=== PATIENT | male | born 1955 | race Caucasian/White ===

== ENCOUNTER 2019-05-21 06:46 | Emergency (ER) | payer MEDICARE, OTHER ==
[2019-05-21 06:54] VITALS: RESP 18; TEMP 98.1
[2019-05-21] MEDS ORDERED: DICYCLOMINE 10 MG/ML 2 ML AMP IM STA (08:01)
--- NOTE | 2019-05-21 08:12 | ED ---
General Adult HPI - General Chief complaint: GI Bleed Stated complaint: Abd Pain Time Seen by Provider: 05/21/19 07:00 Source: patient, RN notes reviewed Mode of arrival: ambulatory Limitations: no limitations - History of Present Illness Initial comments: This is a 64-year-old male who presents to the emergency department complaining that at midnight last night he was somewhat constipated but has not progressed is stool became looser and lucid to the point where he was having just watery diarrhea. Patient states at this point he has had multiple episodes of diarrhea with blood clots in them. Patient states he does have a family history of recta l cancer. Patient states his last colonoscopy was 5 years ago. Patient denies any blood thinners. Patient states she has lower abdominal cramping but no specific area of pain. Patient denies any fever chills per patient denies any recent antibiotics use. Patient denies any nausea vomiting. Patient denies chest pain difficulty breathing shortness of breath. - Related Data Home Medications Medication Instructions Recorded Confirmed Lisinopril [Zestril] 10 mg PO DAILY 05/21/19 05/21/19 Previous Rx's Medication Instructions Recorded Dicyclomine [Bentyl] 20 mg PO QID #10 tablet 05/21/19 Allergies Allergy/AdvReac Type Severity Reaction Status Date / Time No Known Allergies Allergy Verified 05/21/19 07:23 Review of Systems ROS Statement: Those systems with pertinent positive or pertinent negative responses have been documented in the HPI. ROS Other: All systems not noted in ROS Statement are negative. Past Medical History Past Medical History: No Reported History History of Any Multi-Drug Resistant Organisms: None Reported Past Surgical History: No Surgical Hx Reported Past Psychological History: No Psychological Hx Reported Smoking Status: Current every day smoker Past Alcohol Use History: None Reported Past Drug Use History: None Reported General Exam - General Exam Comments Initial Comments: GENERAL: Patient is well-developed and well-nourished. Patient is nontoxic and well- hydrated and is in mild distress. ENT: Neck is soft and supple. No significant lymphadenopathy is noted. Oropharynx is clear. Moist mucous membranes. Neck has full range of motion without eliciting any pain. EYES: The sclera were anicteric and conjunctiva were pink and moist. Extraocular movements were intact and pupils were equal round and reactive to light. Eyelids were unremarkable. PULMONARY: Unlabored respirations. Good breath sounds bilaterally. No audible rales rhonchi or wheezing was noted. CARDIOVASCULAR: There is a regular rate and rhythm without any murmurs gallops or rubs. ABDOMEN: Soft and nontender with normal bowel sounds. No palpable organomegaly was noted. There is no palpable pulsatile mass. RECTAL: No site of obvious bleeding was seen rectal inspection SKIN: Skin is clear with no lesions or rashes and otherwise unremarkable. NEUROLOGIC: Patient is alert and oriented x3. Cranial nerves II through XII are grossly intact. Motor and sensory are also intact. Normal speech, volume and content. Symmetrical smile. MUSCULOSKELETAL: Normal extremities with adequate strength and full range of motion. LYMPHATICS: No significant lymphadenopathy is noted PSYCHIATRIC: Normal psychiatric evaluation. Limitations: no limitations Course Vital Signs 05/21/19 06:50 Temperature 98.1 F Pulse Rate 88 Respiratory 18 Rate Blood Pressure 156/89 O2 Sat by Pulse 96 Oximetry Medical Decision Making - Medical Decision Making Patient felt the Bentyl helped the cramping. Patient was offered admission he did not want state rather follow-up as an outpatient. - Lab Data Result diagrams: 05/21/19 07:00 05/21/19 07:00 Lab Results 05/21/19 05/21/19 05/21/19 Range/Units 07:00 07:00 07:00 WBC 17.5 H (3.8-10.6) k/uL RBC 5.28 (4.30-5.90) m/uL Hgb 14.7 (13.0-17.5) gm/dL Hct 46.5 (39.0-53.0) % MCV 88.0 (80.0-100.0) fL MCH 27.9 (25.0-35.0) pg MCHC 31.7 (31.0-37.0) g/dL RDW 15.4 (11.5-15.5) % Plt Count 203 (150-450) k/uL Neutrophils % 90 % Lymphocytes % 7 % Monocytes % 3 % Eosinophils % 0 % Basophils % 0 % Neutrophils # 15.7 H (1.3-7.7) k/uL Lymphocytes # 1.2 (1.0-4.8) k/uL Monocytes # 0.5 (0-1.0) k/uL Eosinophils # 0.0 (0-0.7) k/uL Basophils # 0.0 (0-0.2) k/uL PT (9.0-12.0) sec INR (<1.2) APTT (22.0-30.0) sec Sodium 140 (137-145) mmol/L Potassium 4.5 (3.5-5.1) mmol/L Chloride 105 (98-107) mmol/L Carbon Dioxide 20 L (22-30) mmol/L Anion Gap 15 mmol/L BUN 22 H (9-20) mg/dL Creatinine 0.83 (0.66-1.25) mg/dL Est GFR (CKD-EPI)AfAm >90 (>60 ml/min/1.73 sqM) Est GFR (CKD-EPI)NonAf >90 (>60 ml/min/1.73 sqM) Glucose 151 H (74-99) mg/dL Calcium 10.7 H (8.4-10.2) mg/dL Magnesium 1.8 (1.6-2.3) mg/dL Total Bilirubin 0.5 (0.2-1.3) mg/dL AST 26 (17-59) U/L ALT 41 (21-72) U/L Alkaline Phosphatase 61 (38-126) U/L Total Protein 8.0 (6.3-8.2) g/dL Albumin 4.9 (3.5-5.0) g/dL Blood Type B Positive Blood Type Confirm Blood Type Recheck CABO Indicated Antibody Screen NEGATIVE Spec Expiration Date 05/24/2019 - 229905/21/19 05/21/19 Range/Units 07:00 08:20 WBC (3.8-10.6) k/uL RBC (4.30-5.90) m/uL Hgb (13.0-17.5) gm/dL Hct (39.0-53.0) % MCV (80.0-100.0) fL MCH (25.0-35.0) pg MCHC (31.0-37.0) g/dL RDW (11.5-15.5) % Plt Count (150-450) k/uL Neutrophils % % Lymphocytes % % Monocytes % % Eosinophils % % Basophils % % Neutrophils # (1.3-7.7) k/uL Lymphocytes # (1.0-4.8) k/uL Monocytes # (0-1.0) k/uL Eosinophils # (0-0.7) k/uL Basophils # (0-0.2) k/uL PT 10.7 (9.0-12.0) sec INR 1.0 (<1.2) APTT 24.1 (22.0-30.0) sec Sodium (137-145) mmol/L Potassium (3.5-5.1) mmol/L Chloride (98-107) mmol/L Carbon Dioxide (22-30) mmol/L Anion Gap mmol/L BUN (9-20) mg/dL Creatinine (0.66-1.25) mg/dL Est GFR (CKD-EPI)AfAm (>60 ml/min/1.73 sqM) Est GFR (CKD-EPI)NonAf (>60 ml/min/1.73 sqM) Glucose (74-99) mg/dL Calcium (8.4-10.2) mg/dL Magnesium (1.6-2.3) mg/dL Total Bilirubin (0.2-1.3) mg/dL AST (17-59) U/L ALT (21-72) U/L Alkaline Phosphatase (38-126) U/L Total Protein (6.3-8.2) g/dL Albumin (3.5-5.0) g/dL Blood Type Blood Type Confirm B Positive Blood Type Recheck Antibody Screen Spec Expiration Date Disposition Clinical Impression: Diarrhea, Rectal bleeding Disposition: HOME SELF-CARE Condition: Good Instructions (If sedation given, give patient instructions): Gastrointestinal Bleeding (ED) Additional Instructions: Patient should follow-up with primary medical care doctor for colonoscopy. Patient should return to emergency department if bleeding becomes heavier or if there are new symptoms. Prescriptions: Dicyclomine [Bentyl] 20 mg PO QID #10 tablet Is patient prescribed a controlled substance at d/c from ED?: No Referrals: Álvaro Jones MD [Primary Care Provider] - 1-2 days Time of Disposition: 09:42
--- NOTE | 2019-05-21 08:15 | XR ---
EXAMINATION TYPE: XR KUB DATE OF EXAM: 05/21/2019 COMPARISON: NONE HISTORY: Pain TECHNIQUE: Single supine KUB image of the abdomen is obtained FINDINGS: Small bowel demonstrates no evidence for dilatation or air fluid levels. Gas and fecal material is seen in non-distended colon. No convincing evidence for pneumoperitoneum. No unusual calcifications. The lung bases are clear. The osseous structures are intact. IMPRESSION: 1. Overall nonobstructive bowel gas pattern.
[2019-05-21 08:28] LABS: Partial Thromboplastin Time 24.1 sec (22.0-30.0); Prothrombin Time 10.7 sec (9.0-12.0)
[2019-05-21 08:30] LABS: ALT 41 U/L (21-72); AST 26 U/L (17-59); African American GFR (CKD) >90 (>60 ml/min/1.73 sqM); Albumin 4.9 g/dL (3.5-5.0); Alkaline Phosphatase 61 U/L (38-126); Anion Gap 15 mmol/L; Basophils % (A) 0 %; Blood Urea Nitrogen 22 mg/dL (9-20); Calcium 10.7 mg/dL (8.4-10.2); Carbon Dioxide 20 mmol/L (22-30); Chloride 105 mmol/L (98-107); Eosinophils % (A) 0 %; Glucose 151 mg/dL (74-99); HCT 46.5 % (39.0-53.0); HGB 14.7 gm/dL (13.0-17.5); Lymphocytes # (A) 1.2 k/uL (1.0-4.8); Lymphocytes % (A) 7 %; MCH 27.9 pg (25.0-35.0); MCHC 31.7 g/dL (31.0-37.0); Magnesium 1.8 mg/dL (1.6-2.3); Monocytes # (A) 0.5 k/uL (0-1.0); Monocytes % (A) 3 %; Neutrophils # (A) 15.7 k/uL (1.3-7.7); Neutrophils % (A) 90 %; Platelet Count 203 k/uL (150-450); Potassium 4.5 mmol/L (3.5-5.1); RBC 5.28 m/uL (4.30-5.90); RDW 15.4 % (11.5-15.5); Sodium 140 mmol/L (137-145); Total Bilirubin 0.5 mg/dL (0.2-1.3); WBC 17.5 k/uL (3.8-10.6)
[2019-05-21 09:54] VITALS: BP 158/93; PULSE 87
== END 2019-05-21 09:54 | disposition home or self-care (01) ==
LOC: EC 06:46
DX: K62.5 Hemorrhage of anus and rectum (principal); R19.7 Diarrhea, unspecified; R10.30 Lower abdominal pain, unspecified; F17.200 Nicotine dependence, unspecified, uncomplicated; Z79.899 Other long term (current) drug therapy; Z98.890 Other specified postprocedural states; Z80.0 Family history of malignant neoplasm of digestive organs
CPT/HCPCS: 36415; 74018; 80053; 83735; 85025; 85610; 85730; 86850; 86900; 86901; 96372; 99284